=== PATIENT | male | born 1960 | race Caucasian/White ===

== ENCOUNTER → 2021-02-05 | Outpatient (CLI) | payer BC | END | disposition home or self-care (01) | LOC: CFH 14:19 | PROVIDERS: ATTEND Physician Assistant Surgical | DX: S86.011A Strain of right Achilles tendon, initial encounter (principal); M66.861 Spontaneous rupture of other tendons, right lower leg; X58.XXXA Exposure to other specified factors, initial encounter; Y93.89 Activity, other specified; Y92.89 Other specified places as the place of occurrence of the external cause; Y99.8 Other external cause status ==